=== PATIENT | female | born 1975 | race Caucasian/White ===

== ENCOUNTER 2016-11-03 21:24 | Emergency (ER) | payer MEDICAID, OTHER ==
[~2016-11-03] VITALS: Ht 152.4 cm; Wt 63.5 kg
[2016-11-03 21:30] VITALS: BP 118/81
[2016-11-03 22:37] LABS: BASOPHILS % (AUTO) 0.6 % (0.0-2.0); DIFF TOTAL % 100 %; EOSINOPHILS # (AUTO) 0.2 /CMM (0.0-0.7); EOSINOPHILS % (AUTO) 2.7 % (0.0-6.0); HEMATOCRIT 36 % (33-45); HEMOGLOBIN 12.4 g/dL (11.5-14.8); LYMPHOCYTES # (AUTO) 2.9 /CMM (0.8-4.8); LYMPHOCYTES % (AUTO) 38.3 % (20.0-44.0); MEAN CORPUSCULAR HEMOGLOBIN 30 PG (26.0-33.0); MEAN CORPUSCULAR HGB CONC 34 g/dl (31.0-36.0); MEAN CORPUSCULAR VOLUME 89 fL (82-100); MONOCYTES # (AUTO) 0.5 /CMM (0.1-1.30); MONOCYTES % (AUTO) 6.3 % (2.0-12.0); NEUTROPHILS % (AUTO) 52.1 % (43.0-81.0); PLATELET COUNT (AUTO) 293 /CMM (150-450); WHITE BLOOD COUNT (AUTO) 7.6 K/uL (4.3-11.0)
[2016-11-03 22:47] LABS: CALCIUM, SERUM 8.6 mg/dL (8.5-10.1); CREATININE 0.6 mg/dL (0.6-1.3)
[2016-11-03 22:53] LABS: ALBUMIN 3.7 g/dL (3.4-5.0); BILIRUBIN,TOTAL 0.2 mg/dL (0.2-1.0)
[2016-11-03 23:05] LABS: THYROID STIMULATING HORMONE 1.263 uIU/mL (0.358-3.74)
== END 2016-11-04 00:14 | disposition home or self-care (01) ==
LOC: ER 21:30
DX: R00.0 Tachycardia, unspecified (principal); R22.1 Localized swelling, mass and lump, neck; L25.9 Unspecified contact dermatitis, unspecified cause
CPT/HCPCS: 36415; 80053; 84443; 84703; 85025; 99284; A4606; Z7610

== ENCOUNTER 2019-06-19 11:19 | Emergency (ER) | payer MEDICAID ==
[~2019-06-19] VITALS: Ht 162.6 cm; Wt 60.3 kg
--- NOTE | 2019-06-19 11:22 | NUR ---
CAME IN FOR L FLANK PAIN AND URINARY FREQUENCY x2DAYS, ALSO C/O COUGH [id number], TO ER BED 6, HOOKED TO MONITOR, DR OSBORNE AT BEDSIDE FOR EVAL
[2019-06-19 11:35] LABS: APPEARANCE,URINE Clear (CLEAR); BILIRUBIN,URINE Negative (NEGATIVE); BLOOD, URINE Trace-intact Ery/uL (NEGATIVE); COLOR,URINE Yellow (YELLOW); KETONES,URINE Negative (NEGATIVE); LEUKOCYTE ESTERASE ,URINE Negative (NEGATIVE); NITRITE, URINE Negative (NEGATIVE); PROTEIN,URINE Negative (NEGATIVE); UGLUCOSE Negative (NEGATIVE); UROBILINOGEN,URINE 0.2 EU/dL (0.2)
[2019-06-19 11:48] LABS: BACTERIA,URINE Rare /HPF (None Seen); SQUAMOUS EPITHELIAL CELL,UR Few /HPF (None Seen); WBC,URINE NONE SEEN /HPF (0-3)
--- NOTE | 2019-06-19 12:42 | NUR ---
Patient discharged to home in stable condition. Written and verbal after care instructions given. Patient verbalizes understanding of instruction.
[2019-06-19 12:43] VITALS: BP 132/81
== END 2019-06-19 12:44 | disposition home or self-care (01) ==
LOC: ER 11:20
DX: M54.5 Low back pain (principal); R05 Cough; Z98.890 Other specified postprocedural states
CPT/HCPCS: 71045-TC; 81000-TC; 84703-TC

== ENCOUNTER 2021-09-05 10:06 | Emergency (ER) | payer MEDICAID ==
[~2021-09-05] VITALS: Ht 160 cm; Wt 63.5 kg
[2021-09-05 10:12] VITALS: BP 95/65
--- NOTE | 2021-09-05 10:16 | NUR ---
BIB family member for left leg pain x2wks now worse". Rates leg pain 9/10. No apparent deformity noted. Will continue to monitor the patient.
[2021-09-05] MEDS ORDERED: HYDROCODONE/APAP 5/325MG TABLET ONE (11:21)
[2021-09-05] MEDS ORDERED: HYDROCODONE/APAP 5/325MG TABLET PO ONE (11:30)
--- NOTE | 2021-09-05 11:42 | NUR ---
Patient discharged to home in stable condition. Written and verbal after care instructions given. Patient verbalizes understanding of instruction.
== END 2021-09-05 11:43 | disposition home or self-care (01) ==
LOC: ER 10:07
DX: M54.9 Dorsalgia, unspecified (principal); Z98.890 Other specified postprocedural states